=== PATIENT | female | born 1990 | race African-American/Black ===

== ENCOUNTER 2018-07-08 19:38 | Emergency (ER) | payer OTHER ==
[~2018-07-08] VITALS: Ht 152.4 cm; Wt 61.7 kg
[2018-07-08] MEDS ORDERED: NORFLEX100 MG PO (20:40)
[2018-07-08] MEDS ORDERED: NAPROSYN500 MG PO (20:40)
[2018-07-08 21:18] VITALS: BP 129/77
== END 2018-07-08 21:13 | disposition home or self-care (01) ==
LOC: ER 19:38
DX: S39.012A Strain of muscle, fascia and tendon of lower back, initial encounter (principal); S16.1XXA Strain of muscle, fascia and tendon at neck level, initial encounter; V43.02XA Car driver injured in collision with other type car in nontraffic accident, initial encounter; Y93.89 Activity, other specified; Y92.89 Other specified places as the place of occurrence of the external cause; Y99.8 Other external cause status

== ENCOUNTER 2020-03-29 11:51 | Emergency (ER) | payer OTHER ==
[~2020-03-29] VITALS: Ht 157.5 cm; Wt 63.5 kg
[~2020-03-29 11:51] MED LIST: NAPROSYN500 MG PO; NORFLEX100 MG PO
[2020-03-29 12:32] LABS: CALCIUM 9.7 mg/dL (8.5-10.1); POTASSIUM 3.7 mmol/L (3.5-5.1)
[2020-03-29 13:12] VITALS: BP 121/77
== END 2020-03-29 13:54 ==
LOC: ER 11:51
PROVIDERS: Nurse Practitioner
DX: M79.18 Myalgia, other site (principal); M79.621 Pain in right upper arm; M79.622 Pain in left upper arm; Z79.899 Other long term (current) drug therapy